=== PATIENT | female | born 1970 | race Caucasian/White ===

== ENCOUNTER 2018-12-09 09:51 | Inpatient (IN) | payer MEDICAID ==
[~2018-12-09] VITALS: Ht 165.1 cm; Wt 73.9 kg
[2018-12-09 10:00] VITALS: BP 130/76
[2018-12-09] MEDS ORDERED: MAGNESIUM HYDROXIDE PO PRN (12:30)
[2018-12-09] MEDS ORDERED: ALUMINUM HYDROXIDE PO PRN (12:30)
[2018-12-09] MEDS ORDERED: SIMETHICONE PO PRN (12:30)
[2018-12-09] MEDS ORDERED: MAGNESIUM HYDROXIDE SUSPENSION 30 ML UDCUP PO PRN (12:30)
[2018-12-09] MEDS ORDERED: ACETAMINOPHEN 325 MG TABLET PO PRN (12:30)
[2018-12-09] MEDS ORDERED: LOPERAMIDE HCL 2 MG CAPSULE PO PRN (12:30)
[2018-12-09] MEDS ORDERED: ZOLPIDEM TARTRATE 10 MG TABLET PO PRN (12:30)
[2018-12-09] MEDS ORDERED: OMEG-135 PO (12:56)
[2018-12-09] MEDS ORDERED: GABA-531 PO (12:56)
[2018-12-09] MEDS ORDERED: PROP10TA73 PO (12:56)
[2018-12-09] MEDS ORDERED: VITAD400 PO (12:56)
[2018-12-09] MEDS ORDERED: PENT100C9 PO (12:56)
[2018-12-09] MEDS ORDERED: ALPR0.5T8 PO (12:56)
[2018-12-09] MEDS ORDERED: IRON15TA3 PO (12:56)
[2018-12-09] MEDS ORDERED: RISP2 PO (12:56)
[2018-12-09] MEDS: HALOPERIDOL 5 MG TABLET PO PRN (13:50)
[2018-12-09] MEDS: LORazepam 2 MG TABLET PO PRN ×2 (13:50→20:48)
[2018-12-09 16:10] VITALS: BP 128/84
[2018-12-09] MEDS ORDERED: PENTOSAN POLYSULFATE SODIUM 100 MG PO SCH (17:00)
[2018-12-10 07:10] VITALS: BP 127/77
[2018-12-10] MEDS ORDERED: CloNIDine HCL 0.1 MG TABLET PO PRN (07:45)
[2018-12-10] MEDS ORDERED: PETROLATUM,WHITE 71 GM JELLY TP PRN (07:45)
[2018-12-10] MEDS ORDERED: IBUPROFEN 600 MG TABLET PO PRN (07:45)
[2018-12-10] MEDS ORDERED: BACITRACIN 28.4 GM OINTMENT TP PRN (07:45)
[2018-12-10] MEDS ORDERED: ALBUTEROL SULFATE HFA 90 MCG/PUFF 8 GM INHALER IH PRN (07:45)
[2018-12-10] MEDS ORDERED: MAGNESIUM HYDROXIDE SUSPENSION 30 ML UDCUP PO PRN (07:45)
[2018-12-10] MEDS ORDERED: MAG HYDROX/AL HYDROX/SIMETH ES 30 ML SUSPENSION UDCUP PO PRN (07:45)
[2018-12-10] MEDS ORDERED: ONDANSETRON HCL 4 MG TABLET PO PRN (07:45)
[2018-12-10] MEDS ORDERED: ACETAMINOPHEN 325 MG TABLET PO PRN (07:45)
[2018-12-10] MEDS ORDERED: LOPERAMIDE HCL 2 MG CAPSULE PO PRN (07:45)
[2018-12-10 07:51] LABS: BASOPHILS % (AUTO) 1.6 % (0.0-2.0); EOSINOPHILS % (AUTO) 2.2 % (1.0-6.0); HEMATOCRIT 37.3 % (36-46); HEMOGLOBIN 12.8 g/dL (12.0-16.0); LYMPHOCYTES # (AUTO) 1.5 K/uL (1.0-4.8); LYMPHOCYTES % (AUTO) 35.1 % (22.0-44.0); MEAN CORPUSCULAR HGB CONC 34.4 G/dL (31.0-37.0); MEAN CORPUSCULAR VOLUME 99 fL (80-100); MONOCYTES # (AUTO) 0.7 K/uL (0.1-1.0); NEUTROPHILS % (AUTO) 46.1 % (40.0-70.0); PLATELET COUNT (AUTO) 236 K/uL (150-450); RED BLOOD CELL COUNT(AUTO) 3.77 MIL/uL (4.00-5.20); RED CELL DISTRIBUTION WIDTH 13.1 % (11.5-14.5)
[2018-12-10 07:56] LABS: HEMOGLOBIN A1C 5.4 % (4.5-6.2)
[2018-12-10 08:06] LABS: AMPHET/METH SCREEN,URINE NEGATIVE (NEGATIVE); APPEARANCE,URINE TURBID (CLEAR); BARBITURATE SCREEN, URINE NEGATIVE (NEGATIVE); BENZODIAZEPINES SCREEN,URINE NEGATIVE (NEGATIVE); BILIRUBIN,URINE NEGATIVE (NEGATIVE); CANNABINOID SCREEN,URINE NEGATIVE (NEGATIVE); COCAINE SCREEN,URINE NEGATIVE (NEGATIVE); GLUCOSE, URINE (UA) NEGATIVE (NEGATIVE); KETONES,URINE NEGATIVE (NEGATIVE); LEUKOCYTE ESTERASE ,URINE SMALL (NEGATIVE); METHADONE SCREEN, URINE NEGATIVE (NEGATIVE); NITRATE,URINE NEGATIVE (NEGATIVE); OCCULT BLOOD,URINE NEGATIVE (NEGATIVE); OPIATE SCREEN,URINE NEGATIVE (NEGATIVE); PHENCYCLIDINE SCREEN,URINE NEGATIVE (NEGATIVE); PROTEIN,URINE NEGATIVE (NEGATIVE); UROBILINOGEN,URINE 0.2 mg/dL (<=1.0)
[2018-12-10 08:12] VITALS: BP 119/64
[2018-12-10 08:13] LABS: ALANINE AMINOTRANSFERASE 61 U/L (12-78); ALBUMIN 2.8 g/dL (3.4-5.0); ALKALINE PHOSPHATASE 69 U/L (46-116); ANION GAP 4 mmol/L (8-16); ASPARTATE AMINOTRANSFERASE 49 U/L (15-37); BILIRUBIN,TOTAL 0.6 mg/dL (0.1-1.0); CALCIUM, TOTAL 8.4 mg/dL (8.8-10.5); CARBON DIOXIDE 30 mmol/L (22-29); CHLORIDE 104 mmol/L (98-107); CHOL/HDL RATIO 1.7 (3.9-5.7); CHOLESTEROL 136 mg/dL (131-200); CREATININE 0.77 mg/dL (0.60-1.30); FREE T4 (FREE THYROXINE) 0.85 ng/dL (0.76-1.46); GLOMERULAR FILTR. RATE CALC > 60 mL/min (>60); GLUCOSE,RANDOM 84 mg/dL (70-110); HDL CHOLESTEROL 78 mg/dL (40-60); LDL CHOL (CALC.) 48 mg/dL (0-130); POTASSIUM 4.2 mmol/L (3.5-5.1); SODIUM SERUM 138 mmol/L (136-145); THYROID STIMULATING HORMONE 2.18 uIU/mL (0.36-3.74); TOTAL PROTEIN, SERUM 5.5 g/dL (6.4-8.2); TRIGLYCERIDES 49 mg/dL (15-150); UREA NITROGEN, BLOOD 9 mg/dL (7-18)
[2018-12-10 08:17] LABS: BACTERIA,URINE Few /HPF (None Seen); RBC,URINE None Seen /HPF (0-2); SQUAMOUS EPITHELIAL CELL,UR Rare /LPF (None Seen); WBC,URINE 0-2 /HPF (0-5)
[2018-12-10 08:18] LABS: AMORPHOUS SEDIMENT,UR Many /LPF (None Seen)
[2018-12-10] MEDS: GABAPENTIN 300 MG CAPSULE PO SCH ×3 (09:19→16:30)
[2018-12-10] MEDS: RisperiDONE 2 MG TABLET PO SCH ×2 (09:19→16:31)
[2018-12-10] MEDS: OMEPRAZOLE 20 MG CAPSULE PO SCH (09:21)
[2018-12-10] MEDS: DOCUSATE SODIUM 100 MG CAPSULE PO SCH (09:21)
[2018-12-10] MEDS: PENTOSAN POLYSULFATE SODIUM 100 MG PO SCH ×2 (11:02→16:30)
[2018-12-10] MEDS ORDERED: FLUCONAZOLE 150 MG TABLET PO ONE (12:00)
[2018-12-10] MEDS ORDERED: PENTOSAN POLYSULFATE SODIUM 100 MG PO SCH ×3 (12:00→17:00)
[2018-12-10 16:28] VITALS: BP 119/77
[2018-12-10] MEDS: LORazepam 2 MG TABLET PO PRN (16:31)
[2018-12-10] MEDS: HALOPERIDOL 5 MG TABLET PO PRN (16:31)
[2018-12-11] MEDS: PENTOSAN POLYSULFATE SODIUM 100 MG PO SCH ×3 (06:11→16:04)
[2018-12-11 06:27] VITALS: BP 118/72
[2018-12-11] MEDS ORDERED: PENTOSAN POLYSULFATE SODIUM 100 MG PO SCH ×2 (07:00)
[2018-12-11 08:05] VITALS: BP 118/74
[2018-12-11] MEDS: LORazepam 2 MG TABLET PO PRN ×2 (08:19→16:04)
[2018-12-11] MEDS: DOCUSATE SODIUM 100 MG CAPSULE PO SCH (08:19)
[2018-12-11] MEDS: GABAPENTIN 300 MG CAPSULE PO SCH ×3 (08:19→16:04)
[2018-12-11] MEDS: OMEPRAZOLE 20 MG CAPSULE PO SCH (08:19)
[2018-12-11] MEDS: BENZOCAINE/MENTHOL LOZENGE MM PRN ×2 (08:21→12:58)
[2018-12-11] MEDS: GuaiFENesin [SUGAR-FREE] 200 MG/10 ML SOLUTION UDCUP PO PRN ×2 (08:33→16:27)
[2018-12-11] MEDS: RisperiDONE 2 MG TABLET PO SCH ×3 (09:00→16:04)
[2018-12-11 16:04] VITALS: BP 106/73
[2018-12-12 02:22] VITALS: BP 116/62
[2018-12-12] MEDS: GuaiFENesin [SUGAR-FREE] 200 MG/10 ML SOLUTION UDCUP PO PRN ×2 (02:25→10:30)
[2018-12-12] MEDS: PENTOSAN POLYSULFATE SODIUM 100 MG PO SCH ×2 (06:31→10:30)
[2018-12-12] MEDS: GABAPENTIN 300 MG CAPSULE PO SCH ×3 (08:07→18:00)
[2018-12-12] MEDS: OMEPRAZOLE 20 MG CAPSULE PO SCH (08:07)
[2018-12-12] MEDS: RisperiDONE 2 MG TABLET PO SCH ×2 (08:08→18:00)
[2018-12-12] MEDS: BENZOCAINE/MENTHOL LOZENGE MM PRN (08:08)
[2018-12-12] MEDS: DOCUSATE SODIUM 100 MG CAPSULE PO SCH (08:08)
[2018-12-12 08:23] VITALS: BP 125/87
[2018-12-12] MEDS: LORazepam 2 MG TABLET PO PRN (12:31)
[2018-12-12] MEDS ORDERED: RISP2 PO ×2 (15:08→15:58)
[2018-12-12] MEDS ORDERED: GABA-531 PO (15:58)
[2018-12-12] MEDS ORDERED: PENT100C9 PO (15:59)
[2018-12-12] MEDS ORDERED: OMEP20 PO (16:00)
[2018-12-12] MEDS ORDERED: DSS100 PO (16:00)
[2018-12-12 16:19] VITALS: BP 122/78
== END 2018-12-12 21:57 | disposition home or self-care (01) | DRG 750 ==
LOC: B3A 12:51
PROVIDERS: ADMIT Psychiatry & Neurology Psychiatry; ATTEND Psychiatry & Neurology Psychiatry
DX: F25.9 Schizoaffective disorder, unspecified (principal); N30.10 Interstitial cystitis (chronic) without hematuria; R45.851 Suicidal ideations; D72.819 Decreased white blood cell count, unspecified; F17.200 Nicotine dependence, unspecified, uncomplicated; F41.9 Anxiety disorder, unspecified; G47.00 Insomnia, unspecified; K59.00 Constipation, unspecified; Z98.84 Bariatric surgery status
CPT/HCPCS: 80307; 83036; 84439; 84443; 90686